=== PATIENT | male | born 1950 | race Caucasian/White ===

== ENCOUNTER 2016-07-05 07:16 | Emergency (ER) | payer OTHER | END 2016-07-05 10:05 | disposition home or self-care (01) | LOC: ER1 07:16 | DX: S16.1XXA Strain of muscle, fascia and tendon at neck level, initial encounter (principal); T14.8 Other injury of unspecified body region; Z88.0 Allergy status to penicillin; Z88.1 Allergy status to other antibiotic agents; W18.39XA Other fall on same level, initial encounter; Y92.009 Unspecified place in unspecified non-institutional (private) residence as the place of occurrence of the external cause | CPT/HCPCS: 71020; 72070; 72125; 96372; 99283; J1100; J1885 ==

== ENCOUNTER → 2016-08-15 | Outpatient (CLI) | payer OTHER | LOC: RT 09:53 | DX: R55 Syncope and collapse (principal) ==

== ENCOUNTER 2020-04-23 02:21 | Emergency (ER) | payer MEDICARE ==
[~2020-04-23 02:21] MED LIST: BACTROBAN OINT22 GM EXT; DOXYCYCLINE HY100 M2 PO; FLORASTOR250 MG PO
[2020-04-23] MEDS ORDERED: BENADRYL 25MG C25 MG PO (02:56)
[2020-04-23] MEDS ORDERED: PEPCID40 MG PO (02:56)
== END 2020-04-23 03:26 | disposition home or self-care (01) ==
LOC: ER1 02:21
DX: L29.9 Pruritus, unspecified (principal); T36.1X5A Adverse effect of cephalosporins and other beta-lactam antibiotics, initial encounter; G47.00 Insomnia, unspecified; K21.9 Gastro-esophageal reflux disease without esophagitis; Z79.899 Other long term (current) drug therapy; Z88.0 Allergy status to penicillin; Z88.1 Allergy status to other antibiotic agents; Z88.8 Allergy status to other drugs, medicaments and biological substances
CPT/HCPCS: 82962; 93005; 96372; 99283

== ENCOUNTER → 2020-11-21 | Outpatient (CLI) | payer MEDICARE ==
[~2020-11-21] MED LIST changes: +BENADRYL 25MG C25 MG PO; +PEPCID40 MG PO
== END ==
LOC: KOH-I 14:26
DX: M79.671 Pain in right foot (principal); M19.071 Primary osteoarthritis, right ankle and foot
CPT/HCPCS: 73630

== ENCOUNTER → 2021-01-03 | Outpatient (CLI) | payer MEDICARE | LOC: EXRD 13:26 | DX: Z01.810 Encounter for preprocedural cardiovascular examination (principal) | CPT/HCPCS: 93926 ==

== ENCOUNTER → 2021-01-16 | Outpatient (CLI) | payer MEDICARE ==
[~2021-01-16] MED LIST changes: +ACIPHEX20 MG PO; +DICLOFENAC TOP; +ENDOCET 10-3251 EACH PO; +LIDOCAINE PAIN1 EACH TP; +LYRICA150 MG PO; +MOBIC15 MG PO; +OMEGA FISH OIL PO; +VITAMIN B12-FO1 EACH PO; +XYZAL5 MG PO
[2021-01-16 11:16] LABS: HEMOGLOBIN 14.4 gm/dl (14.0-17.5); RED BLOOD COUNT 4.84 M/UL (4.20-5.50); WHITE BLOOD COUNT 4.7 K/UL (4.5-11.0)
[2021-01-16 11:33] LABS: BUN/CREATININE RATIO 14 (0-10)
== END ==
LOC: OPSV2 10:00
PROVIDERS: Podiatrist Foot & Ankle Surgery
DX: Z01.818 Encounter for other preprocedural examination (principal)
CPT/HCPCS: 80048; 85027; 93005

== ENCOUNTER → 2021-01-26 | Day surgery (SDC) | payer MEDICARE | END | disposition home or self-care (01) | LOC: OR 05:57 | DX: M19.071 Primary osteoarthritis, right ankle and foot (principal); M20.21 Hallux rigidus, right foot; M20.5X1 Other deformities of toe(s) (acquired), right foot; M89.9 Disorder of bone, unspecified; M79.2 Neuralgia and neuritis, unspecified; R07.89 Other chest pain; K21.9 Gastro-esophageal reflux disease without esophagitis; E78.5 Hyperlipidemia, unspecified; G89.29 Other chronic pain; M51.36 Other intervertebral disc degeneration, lumbar region; Z98.890 Other specified postprocedural states; Z88.0 Allergy status to penicillin; Z88.1 Allergy status to other antibiotic agents; Z91.011 Allergy to milk products; Z91.010 Allergy to peanuts; Z79.899 Other long term (current) drug therapy; Z20.822 Contact with and (suspected) exposure to COVID-19 | CPT/HCPCS: 73620; 73630; 76000; 82550; 82553; 84484; 93005; C1776; J1100; J1885; J2001; J2250; J2405; J2704; J2795; J3010; J3370; J7030 ==

== ENCOUNTER → 2021-02-01 | Outpatient (CLI) | payer MEDICARE | LOC: KOH-I 09:04 | DX: M79.671 Pain in right foot (principal); Z96.698 Presence of other orthopedic joint implants | CPT/HCPCS: 73630 ==

== ENCOUNTER → 2021-03-05 | Outpatient (CLI) | payer MEDICARE | LOC: KOH-I 08:43 | DX: M79.671 Pain in right foot (principal) | CPT/HCPCS: 73630 ==

== ENCOUNTER → 2021-03-26 | Outpatient (CLI) | payer MEDICARE | LOC: KOH-I 08:27 | DX: M79.671 Pain in right foot (principal) | CPT/HCPCS: 73630 ==

== ENCOUNTER 2021-07-04 07:48 | Emergency (ER) | payer MEDICARE ==
[2021-07-04 09:18] LABS: BUN/CREATININE RATIO 22 (0-10)
== END 2021-07-04 11:00 | disposition home or self-care (01) ==
LOC: ER1 07:48
PROVIDERS: Family Medicine
DX: N28.9 Disorder of kidney and ureter, unspecified (principal); M79.661 Pain in right lower leg; G89.29 Other chronic pain
CPT/HCPCS: 80048; 85379; 99283

== ENCOUNTER → 2021-07-10 | Outpatient (CLI) | payer MEDICARE | LOC: KOH-I 09:08 | DX: M79.671 Pain in right foot (principal); M89.8X6 Other specified disorders of bone, lower leg; M79.89 Other specified soft tissue disorders | CPT/HCPCS: 73590; 73630; 93971 ==